=== PATIENT | male | born 1955 | race Hispanic/Latino ===

== ENCOUNTER 2020-12-14 09:40 | Day surgery (SDC) | payer OTHER ==
[2020-12-08 14:36] LABS: BASOPHILS % (AUTO) 1.4 % (0.0-5.0); EOSINOPHILS % (AUTO) 9.7 % (0.0-8.0); HEMATOCRIT 44.4 % (42-54); LYMPHOCYTES % (AUTO) 24.9 % (21.0-51.0); MEAN CORPUSCULAR HEMOGLOBIN 30.4 pg (27.0-33.0); MEAN CORPUSCULAR HGB CONC 34.5 g/dL (32.0-36.0); MEAN CORPUSCULAR VOLUME 88.1 fL (79-99); MONOCYTES % (AUTO) 5.5 % (3.0-13.0); NEUTROPHILS % (AUTO) 58.2 % (40.0-77.0); PLATELET COUNT (AUTO) 229 K/uL (130-400); RED BLOOD CELL COUNT(AUTO) 5.04 MIL/uL (4.50-6.20); RED CELL DISTRIBUTION WIDTH 12.9 % (11.0-15.5); WHITE BLOOD COUNT (AUTO) 5.9 K/uL (4.8-10.8)
[2020-12-08 14:37] LABS: APPEARANCE,URINE CLOUDY (CLEAR); BILIRUBIN,URINE NEGATIVE (NEGATIVE); COLOR,URINE YELLOW (YELLOW); GLUCOSE, URINE (UA) NEGATIVE (NEGATIVE); KETONES,URINE NEGATIVE (NEGATIVE); LEUKOCYTE ESTERASE ,URINE MODERATE (NEGATIVE); NITRATE,URINE NEGATIVE (NEGATIVE); OCCULT BLOOD,URINE LARGE (NEGATIVE); PH,URINE 6.5 (5.0-8.0); PROTEIN,URINE 100 mg/dL (NEGATIVE); UROBILINOGEN,URINE 0.2 mg/dL (0.2-1.0)
[2020-12-08 14:43] LABS: CREATININE 0.9 mg/dL (0.5-1.5); POTASSIUM 4.6 mmol/L (3.5-5.1)
[2020-12-08 14:46] LABS: PROTHROMBIN TIME 10.9 SEC (9.6-11.6)
[2020-12-08 14:47] LABS: PARTIAL THROMBOPLASTIN TIME 26.8 SEC (26.3-35.5); WBC,URINE 26-50 /HPF (0-1)
[2020-12-08 14:50] LABS: BACTERIA,URINE Moderate /HPF (None Seen); SQUAMOUS EPITHELIAL CELL,UR Rare /HPF (0-2)
[2020-12-13 10:01] VITALS: BP 163/83
[~2020-12-14] VITALS: Ht 162.6 cm; Wt 70.8 kg
[2020-12-14] VITALS (16 sets, daily range): BP systolic 115–151; BP diastolic 61–87
[~2020-12-14 09:40] MED LIST: ATOR20TA65 PO; FINA5TAB41 PO; LEVO500T89 PO; METF-445 PO
[2020-12-14] MEDS ORDERED: 0.9%NACL 1000ML 1,000 ML IV ONE (10:46)
[2020-12-14] MEDS ORDERED: CEFTRIAXONE 1G VIAL IVP SCH (11:00)
[2020-12-14] MEDS ORDERED: GENTAMICIN SULFATE 240 MG in 0.9%NACL 100ML 100 ML IV SCH (11:00)
[2020-12-14] MEDS ORDERED: LEVOFLOXACIN 500 MG/D5W 100 ML 100 ML IV SCH (11:30)
[2020-12-14] MEDS ORDERED: LIDOCAINE PF 100MG/5ML (2%) SYRINGE 5ML ONE (13:53)
[2020-12-14] MEDS ORDERED: SUCCINYLCHOLINE 200MG/10ML SYR ONE (13:53)
[2020-12-14] MEDS ORDERED: PROPOFOL 10 MG/ML 20ML VIAL IV ONE (13:53)
[2020-12-14] MEDS ORDERED: ROCURONIUM 10MG/1ML SYR 10 MG/ML ML ONE (13:53)
[2020-12-14] MEDS ORDERED: FENTANYL CITRATE PF 50 MCG/1 ML 2ML VIAL ONE (13:53)
[2020-12-14] MEDS ORDERED: GLYCOPYRROLATE 1 MG/5 ML SYRINGE ONE ×2 (14:25→15:31)
[2020-12-14] MEDS ORDERED: 0.9%NACL 10ML VIAL ONE (14:29)
[2020-12-14] MEDS ORDERED: PHENYLEPHRINE HCL 10 MG/ML 1ML VIAL IV ONE (14:29)
[2020-12-14] MEDS ORDERED: NEOSTIGMINE 5MG/5ML SYR IV ONE (15:31)
== END 2020-12-14 17:45 | disposition home or self-care (01) ==
LOC: DAH 09:40
PROVIDERS: ATTEND Urology
DX: N40.1 Benign prostatic hyperplasia with lower urinary tract symptoms (principal); R33.9 Retention of urine, unspecified; J45.909 Unspecified asthma, uncomplicated; E78.5 Hyperlipidemia, unspecified; I25.10 Atherosclerotic heart disease of native coronary artery without angina pectoris; E11.9 Type 2 diabetes mellitus without complications; I10 Essential (primary) hypertension; Z79.01 Long term (current) use of anticoagulants; Z79.899 Other long term (current) drug therapy; Z20.822 Contact with and (suspected) exposure to COVID-19
CPT/HCPCS: 36415; 52648; 71045; 80048; 81001; 82948 ×2; 85025; 85610; 85730; 87077; 87088; 87186; 87635; 93005; A4215; A4221; A4222; A4223 ×2; A4354; A4358; A4452; A4600; A4663; A6260; C9803; J0330; J1580; J2001; J2370; J2704; J2710; J3010; J3490 ×2; J7030 ×2